=== PATIENT | female | born 1980 | race Caucasian/White ===

== ENCOUNTER 2016-06-08 15:27 | Emergency (ER) | payer MEDICARE, MEDICAID ==
[2016-06-08] MEDS ORDERED: TRAMADOL 50 MG TAB ONE (16:16)
== END 2016-06-08 18:09 | disposition home or self-care (01) ==
LOC: FASTR 15:27
DX: S39.012A Strain of muscle, fascia and tendon of lower back, initial encounter (principal); X50.0XXA Overexertion from strenuous movement or load, initial encounter
CPT/HCPCS: 72100